=== PATIENT | male | born 1980 | race Two or more races ===

== ENCOUNTER 2018-02-08 17:01 | Emergency (ER) | payer OTHER ==
[2018-02-08] MEDS: ACETAMINOPHEN 325 MG TAB PO (17:57)
== END 2018-02-08 18:12 | disposition home or self-care (01) ==
LOC: FTE 17:01
DX: B34.9 Viral infection, unspecified (principal); J45.909 Unspecified asthma, uncomplicated
CPT/HCPCS: 99283; Z7502